=== PATIENT | female | born 1950 | race Caucasian/White ===

== ENCOUNTER → 2016-06-09 | Outpatient (CLI) | payer OTHER | LOC: MMPC 10:00 | PROVIDERS: ATTEND Specialist | DX: R07.9 Chest pain, unspecified (principal); I10 Essential (primary) hypertension; E78.5 Hyperlipidemia, unspecified; I44.7 Left bundle-branch block, unspecified; I51.7 Cardiomegaly | CPT/HCPCS: 99213; G0463 ==

== ENCOUNTER → 2016-08-05 | Outpatient (CLI) | payer OTHER | LOC: MMPC 09:00 | PROVIDERS: ATTEND Family Medicine | DX: E11.9 Type 2 diabetes mellitus without complications (principal); I10 Essential (primary) hypertension; E78.5 Hyperlipidemia, unspecified; K21.9 Gastro-esophageal reflux disease without esophagitis | CPT/HCPCS: 99213; G0463 ==

== ENCOUNTER → 2016-09-29 | Outpatient (CLI) | payer OTHER ==
--- NOTE | 2016-09-29 12:40 | DI ---
XR KNEE CMPT 4 OR MORE VWS,09/29/2016 10:27 AM: Clinical History: Right knee pain. Previous Exam: None at this facility. Findings: Multiple views of the right knee are obtained, and demonstrate mild loss of joint space within the me dial compartment. The surrounding soft tissues are unremarkable. There is a small amount of loss and the joint spaces anteriorly. Impression: Mild degenerative osteoarthritis otherwise unremarkable.
== END ==
LOC: RAD 10:15
PROVIDERS: ATTEND Physician Assistant
DX: M25.561 Pain in right knee (principal); M17.11 Unilateral primary osteoarthritis, right knee
CPT/HCPCS: 73564

== ENCOUNTER → 2016-10-13 | Outpatient (CLI) | payer OTHER | LOC: MMPC 10:00 | PROVIDERS: ATTEND Physician Assistant | DX: M25.561 Pain in right knee (principal) | CPT/HCPCS: 99213; G0463 ==

== ENCOUNTER → 2016-10-26 | Outpatient (CLI) | payer OTHER ==
--- NOTE | 2016-10-26 14:02 | DI ---
MRI LOW EXTREMITY JNT W/O CN,10/26/2016 9:07 AM: Clinical History: Right knee pain. Previous Exam: Plain films of the right knee performed September 29, 2016 Findings: Multiplanar MR images are obtained through the right knee without contrast. Bony alignment is anatomi c and no fractures are seen. There are full-thickness osteochondral defects involving the lateral pat ellar facet with a subchondral cyst. There is thinning of the articular cartilage tricompartmentally. There is also osteophyte formation noted tricompartmentally. There are complex tears of the posterior horn and body of the posterior horn and bodies of the menisc i. The anterior and posterior cruciate ligaments are intact. The medial and lateral collateral ligaments are intact. Large complex Caldwell's cyst noted. There is a small right knee joint effusion. The popliteus tendon is intact. The quadriceps and patellar tendons are intact. Signal within the musculature is unremarkable. The major vascular flow voids are also unremarkable. Impression: 1. Complex tears of the posterior horn and body of both the medial and lateral menisci. 2. 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 3. Knee joint effusion. 4. Large Caldwell's cyst.
== END ==
LOC: MRI 09:00
PROVIDERS: ATTEND Physician Assistant
DX: M25.561 Pain in right knee (principal); S83.271A Complex tear of lateral meniscus, current injury, right knee, initial encounter; S83.231A Complex tear of medial meniscus, current injury, right knee, initial encounter; M94.261 Chondromalacia, right knee; M25.461 Effusion, right knee; M71.21 Synovial cyst of popliteal space [Baker], right knee
CPT/HCPCS: 73721

== ENCOUNTER → 2016-11-02 | Outpatient (CLI) | payer OTHER | LOC: MMPC 10:00 | PROVIDERS: ATTEND Orthopaedic Surgery | DX: S83.231A Complex tear of medial meniscus, current injury, right knee, initial encounter (principal); S83.281A Other tear of lateral meniscus, current injury, right knee, initial encounter; S83.31XA Tear of articular cartilage of right knee, current, initial encounter | CPT/HCPCS: 99214; G0463 ==